=== PATIENT | male | born 1975 | race African-American/Black ===

== ENCOUNTER → 2016-10-23 | Outpatient (REF) | LOC: WSOH 11:54 | DX: Z02.89 Encounter for other administrative examinations (principal) ==

== ENCOUNTER → 2016-11-05 | Outpatient (REF) | LOC: WSOH 09:00 | DX: Z11.1 Encounter for screening for respiratory tuberculosis (principal) ==

== ENCOUNTER → 2016-11-29 | Outpatient (CLI) | payer BC | LOC: COL.RAD 16:29 | DX: R91.1 Solitary pulmonary nodule (principal) ==